=== PATIENT | female | born 1990 | race African-American/Black ===

== ENCOUNTER 2016-06-27 10:57 | Emergency (ER) ==
[2016-06-27 11:15] VITALS: BP 138/75
[2016-06-27] MEDS ORDERED: XYLOCAINE 1% INJ ONE (11:56)
--- NOTE | 2016-06-27 12:00 | PROVIDER DOCUMENTATION ---
HPI-Rash/Wound/ReCheck - General Source: patient - History of Present Illness-Dermatology Location: reports: other (L buttock) Quality: reports: painful Severity: reports: mild Onset/Duration: reports: 2 days ago, 3 days ago Timing: reports: still present Context/Associated Symptoms: reports: abscess (on L buttock) Exposure: reports: unknown cause Similar Symptoms Previously?: No Recently seen or treated by another doctor?: No <Jil Kaye - Last Filed: 06/27/16 12:06> - General Source: patient Unable to obtain history due to:: urgency - History of Present Illness-Dermatology Location: reports: other (BUTTOCK) <Vernell Kingsley - Last Filed: 06/27/16 13:02> - General Chief Complaint: Abscess Stated Complaint: POSS ABSCESS Time Seen by Provider: 06/27/16 11:35 Allergies/Adverse Reactions: Allergies Allergy/AdvReac Type Severity Reaction Status Date / Time pomegranate Allergy ITCHING Verified 06/27/16 11:26 Home Medications: Home Medication List Medication Instructions Recorded Confirmed Last Taken Type Hydrocodone/APAP 7.5 mg/325 mg 1 each PO Q6H PRN PRN #6 tablet 06/27/16 Unknown Rx [[place]-7.5] Sulfamethoxazole/Trimethoprim 1 each PO BID #20 tablet 06/27/16 Unknown Rx [Bactrim Ds Tablet] - History of Present Illness-Dermatology Nature of Presenting Problem: 26 y/o F presents to ED cc of abscess on L buttock. Abscess in not near the rectum. Pt states is has been there x 2-3 days. Pain has worsen. Pt is alert and oriented. Abscess is 2.5cm. (Jil Kaye) "A BOIL ON MY BUTT.": (Vernell Kingsley) Review of Systems - Adult - REVIEW OF SYSTEMS - ADULT Constitutional: denies: chills, fever Cardiovascular: denies: chest pain, palpitations Respiratory: denies: cough, shortness of breath Gastrointestinal: denies: abdominal pain, diarrhea, nausea, vomiting Genitourinary: denies: discharge, frequency Musculoskeletal: denies: bone pain, back pain Integumentary: reports: other (abscess to L buttock). denies: rash Neurological: denies: dizziness/vertigo, headache/migraines <Jil Kaye - Last Filed: 06/27/16 12:06> - REVIEW OF SYSTEMS - ADULT Constitutional: reports: no symptoms reported Eyes: reports: no symptoms reported Ears, Nose, Mouth & Throat: reports: no symptoms reported Cardiovascular: reports: no symptoms reported Respiratory: reports: no symptoms reported Gastrointestinal: reports: no symptoms reported Genitourinary: reports: no symptoms reported Musculoskeletal: reports: no symptoms reported Integumentary: reports: other (LEFT BUTTOCK ABSCESS) Neurological: reports: no symptoms reported Psychiatric: reports: no symptoms reported Endocrine: reports: no symptoms reported Hematologic/Lymphatic: reports: no symptoms reported Allergic/Immunologic: reports: no symptoms reported All Other Systems: Reviewed and Negative <Vernell Kingsley - Last Filed: 06/27/16 13:02> Past History - Adult - PAST MEDICAL HISTORY-ADULT Review of Records: reports: Old Records Reviewed, Nursing Assessment Review - SOCIAL HISTORY Smoking: greater than 1 pack/day Provider spent 3-5 mins advising pt. on dangers of tobacco.: Discussed manners to quit use, and f/u contacts for add'l counseling. Substance Use: denies <Jil Kaye - Last Filed: 06/27/16 12:06> - PAST MEDICAL HISTORY-ADULT Major Childhood Illnesses: reports: denies history Cardiovascular: reports: denies history Respiratory: reports: denies history Gastrointestinal: reports: denies history Obstetrical/Gynecological: reports: denies history, other Genitourinary: reports: denies history Musculoskeletal: reports: denies history Neurological: reports: denies history Psychiatric: reports: denies history Endocrine/Immune: reports: anemia Other Conditions: reports: MRSA Additional History: hidridenitis, - PRIOR SURGERIES/PROCEDURES Surgical/Procedure History: reports: reviewed, not pertinent, orthopedic ( extremity) (finger) - PRIOR HOSPITALIZATIONS Prior Hospitalizations: reports: for other non-related - IMMUNIZATION STATUS Childhood Immunizations: See Nurse Assessment Flu Vaccine: See Nurse Assessment - FAMILY HISTORY Family History: reviewed, not pertinent <Vernell Kingsley - Last Filed: 06/27/16 13:02> Physical Exam-General - CONSTITUTIONAL General Appearance: appears well, alert, no apparent distress - HEAD, EARS, NOSE, MOUTH & THROAT HENMT: moist mucous membranes - NECK Neck: full range of motion, supple - RESPIRATORY Respiratory: chest non-tender, lungs clear, normal breath sounds - CARDIOVASCULAR Cardiovascular: regular rate, rhythm, no edema - GASTROINTESTINAL (ABDOMEN) Abdominal Exam: non tender, soft - MUSCULOSKELETAL Back Exam: no CVA tenderness, no vertebral tenderness Extremity: normal range of motion, non-tender, normal gait - SKIN Integumentary: normal color, warm/dry, other (abscess to L buttock- 2.5 CM) - NEUROLOGIC Neurologic: grossly normal, no motor/sensory deficits - PSYCHIATRIC Psych/Mental Status: oriented x 3 <Jil Kaye - Last Filed: 06/27/16 12:06> Progress <Jil Kaye - Last Filed: 06/27/16 12:06> <Vernell Kingsley - Last Filed: 06/27/16 13:02> - PLAN OF CARE/RESULTS Progress/Plan/Lab Results: PLAN: DRAINAGE (Jil Kaye) Procedures - INCISION & DRAINAGE Abscess Type: Simple Prepped with: Kit UtilizedBuck Anesthetic: 1%, Lidocaine/Xylocaine Volume of Anesthetic (ml's): 1 Blade Size: 10 Packing placed?: Yes (IODOFORM) Sterile Dressing Applied?: Yes Drainage: Large Amount (PURULENT DRAINAGE) <Vernell Kingsley - Last Filed: 06/27/16 13:02> Departure <Jil Kaye - Last Filed: 06/27/16 12:06> - Departure Time of Disposition Order: 12:58 Certified Medical Emergency: Emergent <Vernell Kingsley - Last Filed: 06/27/16 13:02> - Departure DIAGNOSIS: Abscess of left buttock Disposition: HOME 01 Condition: Stable Additional Instructions: RETURN IN 2-3 DAYS FOR WOUND RECHECK ED Follow Up Instructions: You have been treated by a care provider in the Emergency Department. These instructions are being provided to you so you can have an understanding of how to care for yourself upon discharge. Upon discharge from the Emergency Department, you are responsible for making arrangements for follow-up care by a physician of your choice. Take all prescribed medications as directed. Return to the Emergency Department immediately for any new or worsening symptoms. You may call the Physician Referral phone number at [phone] to obtain a list of Physicians who are taking new patients. Prescriptions: Sulfamethoxazole/Trimethoprim [Bactrim Ds Tablet] 1 each PO BID #20 tablet Hydrocodone/APAP 7.5 mg/325 mg [[place]-7.5] 1 each PO Q6H PRN PRN #6 tablet PRN Reason: Pain Referrals: Felix Scott MD [Primary Care Provider] - Attestation - Scribe Verification/Attestation Scribe:: Jil Kaye Acting as Scribe for:: Ariel Caballero Scribe documention review:: This chart was documented by a scribe and accurately reflects the service the provider performed and the decisions made by the provider. - Physician/ EARLE Attestation Advanced Practice Provider:: Vernell Kingsley <Jil Kaye - Last Filed: 06/27/16 12:06> Physician Attestation
[2016-06-27] MEDS ORDERED: NORCO-5 PO ONE (12:41)
== END 2016-06-27 13:34 | disposition home or self-care (01) ==
LOC: ED 10:57
DX: L02.31 Cutaneous abscess of buttock (principal); M79.1 Myalgia; F17.210 Nicotine dependence, cigarettes, uncomplicated; Z71.6 Tobacco abuse counseling; Z86.14 Personal history of Methicillin resistant Staphylococcus aureus infection
CPT/HCPCS: 87070

== ENCOUNTER 2016-07-01 19:37 | Emergency (ER) ==
--- NOTE | 2016-07-01 21:19 | PROVIDER DOCUMENTATION ---
HPI-Rash/Wound/ReCheck - General Chief Complaint: Return/Recheck Stated Complaint: RECHECK Time Seen by Provider: 07/01/16 20:57 Source: patient, old records Allergies/Adverse Reactions: Allergies Allergy/AdvReac Type Severity Reaction Status Date / Time pomegranate Allergy ITCHING Verified 06/27/16 11:26 Home Medications: Home Medication List Medication Instructions Recorded Confirmed Last Taken Type Hydrocodone/APAP 7.5 mg/325 mg 1 each PO Q6H PRN PRN #6 tablet 06/27/16 Unknown Rx [[place]-7.5] Sulfamethoxazole/Trimethoprim 1 each PO BID #20 tablet 06/27/16 Unknown Rx [Bactrim Ds Tablet] - History of Present Illness-Dermatology Nature of Presenting Problem: Pt presents today for a recheck of her I&D s/p 3 days ago. She states that it seems to be healing well. No complaints. Location: reports: other (left buttocks) Onset/Duration: reports: 3 days ago Context/Associated Symptoms: reports: abscess - Recheck Treated days ago.: 3 Previous Treatment: I & D of abscess Antibiotics given: prescription Symptoms since procedure:: reports: no complaints Review of Systems - Adult - REVIEW OF SYSTEMS - ADULT Constitutional: reports: no symptoms reported. denies: chills, fever Eyes: reports: no symptoms reported. denies: discharge, dry eyes Ears, Nose, Mouth & Throat: reports: no symptoms reported. denies: ear discharge, ear pain Cardiovascular: reports: no symptoms reported. denies: chest pain, edema Respiratory: reports: no symptoms reported. denies: chronic cough, cough Gastrointestinal: reports: no symptoms reported. denies: abdominal pain, hematemesis Genitourinary: reports: no symptoms reported. denies: dysuria, discharge Musculoskeletal: reports: no symptoms reported. denies: bone pain, back pain Integumentary: reports: see HPI. denies: hives, hair loss Neurological: reports: no symptoms reported. denies: ataxia, dizziness/vertigo Psychiatric: reports: no symptoms reported. denies: anxiety, anti-depressant use Endocrine: reports: no symptoms reported Hematologic/Lymphatic: reports: no symptoms reported Allergic/Immunologic: reports: no symptoms reported All Other Systems: Reviewed and Negative Past History - Adult - PAST MEDICAL HISTORY-ADULT Review of Records: reports: Old Records Reviewed, Nursing Assessment Review, Medications Reviewed, Social history reviewed & non-contributory. Major Childhood Illnesses: reports: denies history Cardiovascular: reports: denies history Respiratory: reports: denies history Gastrointestinal: reports: denies history Obstetrical/Gynecological: reports: denies history, other Genitourinary: reports: denies history Musculoskeletal: reports: denies history Neurological: reports: denies history Psychiatric: reports: denies history Endocrine/Immune: reports: anemia Other Conditions: reports: MRSA Additional History: hidridenitis, - PRIOR SURGERIES/PROCEDURES Surgical/Procedure History: reports: reviewed, not pertinent, orthopedic ( extremity) (finger) - PRIOR HOSPITALIZATIONS Prior Hospitalizations: reports: for other non-related - IMMUNIZATION STATUS Childhood Immunizations: See Nurse Assessment Flu Vaccine: See Nurse Assessment - FAMILY HISTORY Family History: reviewed, not pertinent Physical Exam-General - PHYSICAL EXAM-ADULT Initial Vital Signs Reviewed: Yes - CONSTITUTIONAL General Appearance: appears well, alert, no apparent distress - EYES Eyes: PERRL/EOMI, pink conjunctivae - HEAD, EARS, NOSE, MOUTH & THROAT HENMT: normocephalic/atraumatic, moist mucous membranes, normal ENT inspection - NECK Neck: non-tender, full range of motion - RESPIRATORY Respiratory: chest non-tender, lungs clear, normal breath sounds - CARDIOVASCULAR Cardiovascular: normal peripheral pulses, regular rate, rhythm - GASTROINTESTINAL (ABDOMEN) Abdominal Exam: normal bowel sounds, non tender, soft - MUSCULOSKELETAL Back Exam: normal inspection, no CVA tenderness, no vertebral tenderness Extremity: normal range of motion, non-tender - SKIN Integumentary: normal turgor, warm/dry, other (healing very well; no complications; packing has fallen out) - NEUROLOGIC Neurologic: grossly normal, no motor/sensory deficits Progress - PLAN OF CARE/RESULTS Progress/Plan/Lab Results: Vital Signs Temp Pulse Resp BP Pulse Ox 07/01/16 19:49 98.5 F 81 16 125/81 100 pomegranate Allergy (Verified 06/27/16 11:26) ITCHING Hydrocodone/APAP 7.5 mg/325 mg [[place]-7.5] 1 each PO Q6H PRN PRN #6 tablet 06/27 Sulfamethoxazole/Trimethoprim [Bactrim Ds Tablet] 1 each PO BID #20 tablet 06/27 Departure - Departure Time of Disposition Order: 21:24 DIAGNOSIS: Abscess re-check Disposition: HOME 01 Certified Medical Emergency: Urgent Condition: Good Additional Instructions: Warm salt water soaks. Follow up with your primary care provider. ED Follow Up Instructions: You have been treated by a care provider in the Emergency Department. These instructions are being provided to you so you can have an understanding of how to care for yourself upon discharge. Upon discharge from the Emergency Department, you are responsible for making arrangements for follow-up care by a physician of your choice. Take all prescribed medications as directed. Return to the Emergency Department immediately for any new or worsening symptoms. You may call the Physician Referral phone number at [phone] to obtain a list of Physicians who are taking new patients. Attestation - Physician/ EARLE Attestation Patient care was provided by Advanced Practice Provider:: Yes Advanced Practice Provider:: Yoni Bautista Advanced Practice Provider documentation review:: The Mid-level provider documentation, treatment plan and medical decision making was reviewed by the physician who agrees with all treatment and medical decision making by the MLP.
[2016-07-01 21:46] VITALS: BP 122/69
== END 2016-07-01 22:10 | disposition home or self-care (01) ==
LOC: ED 19:37
DX: L02.31 Cutaneous abscess of buttock (principal); Z86.14 Personal history of Methicillin resistant Staphylococcus aureus infection